=== PATIENT | male | born 1935 | race Caucasian/White ===

== ENCOUNTER 2023-04-01 07:31 | Outpatient (CLI) | payer MEDICARE, OTHER ==
[~2023-04-01] VITALS: Ht 170 cm; Wt 99.9 kg
[2023-04-01] VITALS (11 sets, daily range): BP systolic 124–148; BP diastolic 65–77
[2023-04-01 08:01] LABS: HEMATOCRIT 41 % (40-54); MEAN CORPUSCULAR HEMOGLOBIN 29 pg (25-34); MEAN CORPUSCULAR HGB CONC 32 g/dL (32-36); MEAN CORPUSCULAR VOLUME 91 fL (80-99); MEAN PLATELET VOLUME 9.7 fL (9.0-12.2); PLATELET COUNT 344 10^3/uL (130-400); WHITE BLOOD COUNT 11.5 10^3/uL (4.3-11.0)
[2023-04-01 08:09] LABS: PROTHROMBIN TIME PATIENT 13.3 SEC (12.2-14.7)
[2023-04-01] MEDS ORDERED: PANT40TA52 PO (08:14)
[2023-04-01] MEDS ORDERED: SUCR1TAB PO (08:14)
[2023-04-01] MEDS ORDERED: SIMV10TA26 PO (08:14)
[2023-04-01] MEDS ORDERED: NS IV 1000 ML 1,000 ML IV STA (08:19)
[2023-04-01] MEDS ORDERED: NS IV 1000 ML 1,000 ML ONE (08:27)
[2023-04-01] MEDS ORDERED: fentaNYL INJECTION 100 MCG/2 ML VIAL ONE (08:27)
[2023-04-01] MEDS ORDERED: LIDOCAINE 1% INJ 10 ML VIAL ONE (08:27)
[2023-04-01] MEDS ORDERED: MIDAZOLAM INJ 2 MG/2 ML VIAL ONE (08:28)
[2023-04-01] MEDS ORDERED: fentaNYL INJECTION 100 MCG/2 ML VIAL IVP ONE (08:30)
[2023-04-01] MEDS ORDERED: LIDOCAINE 1% INJ 10 ML VIAL INJ ONE (08:30)
[2023-04-01] MEDS ORDERED: MIDAZOLAM INJ 2 MG/2 ML VIAL IVP ONE (08:30)
--- NOTE | 2023-04-01 09:32 | Pre-Op Note & Conscious Sedat ---
Pre-Operative Progress Note Date of Available H&P: Apr 01, 2023 Date H&P Reviewed: Apr 01, 2023 Time H&P Reviewed: 08:00 Pre-Op Diagnosis: chest mass Moderate Sedation PreProcedure Time 08:00 ASA Score 2 Airway Lungs Heart ASA score ASA 1: a normal healthy patient ASA 2: a patient with a mild systemic disease (mid diabetes, controlled hypertension, obesity ASA 3: a patient with a severe systemic disease that limits activity (angina, COPD, prior Myocardial infarction) ASA 4: a patient with an incapacitating disease that is a constant threat to life (CHF, renal failure) ASA 5: a moribund patient not expected to survive 24 hrs. (ruptured aneurysm) ASA 6: a declared brain- patient whose organs are being harvested. For emergent operations, add the letter E after the classification Mallampati Classification Grade 2 Sedation Plan Analgesia, Amnesia, Plan communicated to team members, Discussed options with patient/fam, Discussed risks with patient/fam The patient is an appropriate candidate to undergo the planned procedure, sedation, and anesthesia. The patient immediately re-assessed prior to indication. CHUCK MEJIA MD Apr 01, 2023 09:32
--- NOTE | 2023-04-01 09:43 | Diagnostic Imaging Report ---
INDICATION: Right chest wall mass. Patient presents for CT-guided biopsy. TECHNIQUE: All CT scans use one or more of the following dose optimizing techniques: automated exposure control, MA and/or KvP adjustment based on patient size and exam type or iterative reconstruction. DETAILS OF THE PROCEDURE: The patient was brought to the CT suite and placed on the table in the left side down decubitus position. Axial imaging through the chest was performed to evaluate for an appropriate entry site. The right posterior thorax was then prepped and draped in the usual sterile fashion. The procedure was performed utilizing conscious sedation with Radiology nursing and constant patient monitoring. Patient was given a total of 50 mcg of fentanyl intravenously and 1 mg of Versed intravenously. Total procedure time was approximately 12 minutes. An 18-gauge coaxial Temno needle was advanced from a right posterior approach into the mass in the right posterior chest wall. Four core biopsies were obtained. The needle was withdrawn and hemostasis was obtained. Post procedure images showed no complicating features. Patient tolerated the procedure well and left the Department in stable condition. IMPRESSION: Successful CT-guided core biopsy of the mass in the right posterior chest wall. Pathology results are currently pending. Dictated by: Dictated on workstation # [id number]
[2023-04-01] MEDS ORDERED: HYDROcodone/ACETAMINOPHEN 5 MG/325 MG TABLET PO PRN (10:00)
--- NOTE | 2023-04-01 11:48 | Diagnostic Imaging Report ---
INDICATION: Right chest wall mass, status post biopsy. TIME OF EXAM: 11:32 AM. FINDINGS: An expiratory radiograph of the abdomen demonstrates a soft tissue mass in the right mid chest with destruction of the right posterior 5th rib. No pneumothorax is identified status post biopsy. There is no effusion. IMPRESSION: No evidence of pneumothorax. Dictated by: Dictated on workstation # [id number]
== END 2023-04-01 12:00 | disposition home or self-care (01) ==
LOC: SDC 07:31
PROVIDERS: ATTEND Family Medicine
DX: C7B.8 Other secondary neuroendocrine tumors (principal); C80.1 Malignant (primary) neoplasm, unspecified; L85.9 Epidermal thickening, unspecified; Z87.11 Personal history of peptic ulcer disease; Z87.891 Personal history of nicotine dependence; Z87.81 Personal history of (healed) traumatic fracture
CPT/HCPCS: 36415; 71045; 77012; 85027; 85610; 85730; 88305; 88341; 88342; 88344; 88360; 99156